=== PATIENT | male | born 1995 | race Caucasian/White ===

== ENCOUNTER 2018-02-26 18:24 | Emergency (ER) | payer SELFPAY ==
[~2018-02-26] VITALS: Ht 182.9 cm; Wt 116.2 kg
[2018-02-26 18:32] VITALS: BP 146/91
[2018-02-26] MEDS ORDERED: triamcinolone acetonide 40mg/ml inj IM ONE (19:00)
[2018-02-26] MEDS ORDERED: diphenhydrAMINE 25mg capsule PO ONE (19:00)
== END 2018-02-26 19:24 | disposition home or self-care (01) ==
LOC: ER 18:24
DX: L23.9 Allergic contact dermatitis, unspecified cause (principal)
CPT/HCPCS: 96372; 99283; J3301; Q0163